=== PATIENT | male | born 1990 | race Caucasian/White ===

== ENCOUNTER → 2020-04-10 | Outpatient (CLI) | payer OTHER ==
--- NOTE | 2020-04-10 13:58 | XR ---
EXAMINATION TYPE: XR tibia fibula LT, XR ankle complete LT DATE OF EXAM: 04/10/2020 CLINICAL HISTORY: Fall injury with pain TECHNIQUE: Two views of the left leg are obtained. 3 views left ankle. COMPARISON: None. FINDINGS: There is no acute fracture or dislocation seen in the left tibia or fibula. The left knee joint appears within normal limits. Focal mild venous edema anteriorly along with greatest laterally of the distal leg. Images of the left ankle show no acute fracture or dislocation. Ankle mortise symmetry is preserved. Overlying soft tissues are unremarkable. IMPRESSION: There is no acute fracture or dislocation seen in the left leg or ankle.
== END ==
LOC: RADXRMAIN 13:41
PROVIDERS: ATTEND Emergency Medicine
DX: S99.912A Unspecified injury of left ankle, initial encounter (principal); S89.92XA Unspecified injury of left lower leg, initial encounter; W19.XXXA Unspecified fall, initial encounter

== ENCOUNTER → 2020-04-17 | Outpatient (CLI) | payer SELFPAY ==
--- NOTE | 2020-04-17 16:46 | XR ---
EXAMINATION TYPE: XR tibia fibula LT DATE OF EXAM: 04/17/2020 CLINICAL HISTORY: Injury, hematoma and pain. TECHNIQUE: Two views of the left leg are obtained. COMPARISON: Left tibia and fibula one week earlier.. FINDINGS: There is no acute fracture or dislocation seen in the left tibia or fibula. The left knee and ankle joints remain within normal limits. Persistent mild to moderate subcutaneous edema mid to distal leg similar to prior. IMPRESSION: As above.
== END | disposition home or self-care (01) ==
LOC: RADXRMAIN 16:15
PROVIDERS: ATTEND Emergency Medicine
DX: R60.0 Localized edema (principal)